=== PATIENT | female | born 1955 | race Caucasian/White ===

== ENCOUNTER 2016-04-03 12:40 | Emergency (ER) | payer OTHER ==
[~2016-04-03] VITALS: Ht 160 cm; Wt 49.9 kg
[~2016-04-03 12:40] MED LIST: ALBUTEROL 3 ML3 ML INH; COMBIVENT RESPIM4 GM INH; COZAAR25 M1 PO; HYDROCODONE/ACE1 TA1 PO; IBU800 MG PO; MOTRIN 800MG T800 MG PO; MOTRIN800 MG PO; NORVASC5 M1 PO; OXYCODONE5 M1 PO; PERCOCET 325 MG1 TAB PO; PREDNISONE10 MG PO; PREDNISONE20 M1 PO; ZITHROMAX250 M2 PO
[2016-04-03 12:55] VITALS: BP 155/78
== END 2016-04-03 13:22 | disposition admitted as inpatient to this hospital (09) ==
LOC: ERH 12:40
DX: M25.511 Pain in right shoulder (principal)

== ENCOUNTER 2016-04-16 10:32 | Emergency (ER) | payer OTHER ==
[~2016-04-16] VITALS: Ht 162.6 cm; Wt 49.9 kg
--- NOTE | 2016-04-16 11:36 | ED NECK/BACK PAIN COMPLAINT ---
History of Present Illness General Chief Complaint: Upper Extremity Injury Stated Complaint: R ARM PAIN Source: patient Exam Limitations: no limitations Vital Signs & Intake/Output Vital Signs & Intake/Output Vital Signs Date Time Temp Pulse Resp B/P Pulse O2 O2 Flow FiO2 Ox Delivery Rate 04/16 1206 97.2 80 18 121/81 97 Room Air 04/16 1055 97.9 80 20 114/77 95 Room Air Allergies Coded Allergies: NO KNOWN ALLERGIES (10/06/11) Reconcile Medications Albuterol Sulfate 2.5 MG/3 ML (0.083 %) VIAL.NEB 1 Vial INH/DEVIN Q4P PRN BREATHING PROBLEMS (Reported) Amlodipine Besylate (Norvasc) 5 MG TABLET 1 TAB PO DAILY BP (Reported) Duloxetine Hydrochloride (Cymbalta) 30 MG CAPSULE.DR 1 CAP PO DAILY PRN PAIN Ibuprofen 400 MG TABLET 1 TAB PO Q6P PRN PAIN (Reported) Ipratropium/Albuterol Sulfate (Combivent Respimat Inhal [place]) 4 GM MIST.INHAL 1 Actuation INH Q6P PRN COPD Ketorolac Tromethamine 10 MG TABLET 1 TAB PO TID PAIN Losartan/Hydrochlorothiazide (Losartan-Hctz 50-12.5 MG Tab) 50 MG-12.5 MG TABLET 1 TAB PO DAILY HEART (Reported) Methylprednisolone. (Medrol) 4 MG TAB.DS.PK 1 DP PO AD INFLAMMATION 6 on day 1 then reduce by one tablet daily until gone Oxycodone HCl/Acetaminophen (Percocet 7.5-325 MG Tablet) 7.5 MG-325 MG TABLET 1 TAB PO TID PRN PAIN (Reported) Triage Note: PAIN IN THE BACK OF RIGHT SHOULDER THAT RUNS DOWN RIGHT ARM AND PULLS AND ROSE. PT STATES HER RIGHT ARM GOES NUMB Triage Nurses Notes Reviewed? yes Onset: Gradual Duration: constant Timing: recent history Location: paraspinous muscles Context: lifting Loss of Consciousness: no loss of consciousness HPI: Patient is a 60-year-old female with a past medical history of chronic pain who presents to emergency room with a 2 week history of gradual onset of right-sided neck pain with radiation down her right upper extremity of pain paresthesia and weakness. Patient denies any mechanism injury denies any extremity swelling. Patient also states that his primary care doctor no longer prescribed narcotics and was requesting narcotic prescriptions for her chronic symptoms. Denies chest pain shortness of breath (DANNY HINOJOSA) Past History Travel History Traveled to [place] past 21 day No Medical History Any Pertinent Medical History? 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 No (DANNY HINOJOSA) Review of Systems Review of Systems Constitutional: Reports: no symptoms. Eyes: Reports: no symptoms. Ears, Nose, Throat, Mouth: Reports: no symptoms. Respiratory: Reports: no symptoms. Cardiovascular: Reports: no symptoms. Gastrointestinal/Abdominal: Reports: no symptoms. Musculoskeletal: Reports: see HPI, muscle pain, neck pain. Skin: Reports: no symptoms. Neurological/Psychological: Reports: see HPI. All Other Systems: Reviewed and Negative (DANNY HINOJOSA) Physical Exam Physical Exam General Appearance: no apparent distress, alert, comfortable Neck: normal inspection, supple, decreased active range of motion noted Right lateral muscular point tenderness noted, no central spinous tenderness noted Comments: Well-developed well-nourished person in no acute distress HEENT: Normal EENT exam, Neck: Supple, no lymphadenopathy, normal range of motion without pain or tenderness Back: Nontender, no CVA tenderness. Cardiovascular: Regular rate and rhythms no murmurs rubs or gallops, normal JVP Respiratory: Chest nontender. No respiratory distress.breath sounds clear to auscultation bilaterally Abdomen: Soft, nontender nondistended, no appreciable organomegaly. Normal bowel sounds. No ascites Extremity: Right upper extremity generalized decreased dermatome sensation compared bilaterally to left side Myotomes intact DTRs intact radial pulse +2 no swelling Positive Sydney's test Neuro: Alert oriented x3, motor normal, cranial nerves II through XII grossly intact. Skin: No appreciable rash on exposed skin, skin is warm and dry. Psych: Mood and affect is normal, memory and judgment is normal. (DANNY HINOJOSA) Progress Differential Diagnosis: AAA, aortic dissection, C spine injury, carotid dissection, cauda equina syn, herniated disc, myofascial strain, pyelo/UTI, sciatica, spinal cord inj, thoracic outlet syn, T/L spine injury, ureterolithiasis Plan of Care: Current Medications Sig/Kayleen Start time Last Medication Dose Stop Time Status Admin Ketorolac 30 MG ONCE ONE 04/16 1200 AC Tromethamine 04/16 1201 (Toradol) Patient on physical exam findings has concerns of cervical radiculopathy. Patient has been prescribed in the past 7.5 mg of narcotics however patient was strongly advised to follow-up with pain management for her CHRONIC PAIN symptoms and patient will be treated conservatively with NSAIDs and anti-inflammatories. (DANNY HINOJOSA) Departure Departure Disposition: HOME OR SELF CARE Condition: Stable Clinical Impression Primary Impression: Cervical radiculopathy Secondary Impressions: Chronic pain Referrals: KANCHAN MAC,VIJAYA (PCP/Family) Additional Instructions: As discuss follow-up with your primary care doctor for referral for pain management. Begin icing or heating your neck for your symptoms 20 minutes every 2 hours. Begin the prescription a ketorolac for pain and inflammation and a prescription of Cymbalta for pain. Begin the prescription of Medrol Dosepak for inflammation. Prescriptions waiting at [facility]. If symptoms worsen return to emergency room. Follow-up if your primary care doctor in 1 week for recheck of symptoms and possible MRI referral Departure Forms: Customer Survey General Discharge Information Prescriptions: Current Visit Scripts Ketorolac Tromethamine 1 TAB PO TID #20 TAB Duloxetine Hydrochloride (Cymbalta) 1 CAP PO DAILY PRN PAIN #20 CAP Methylprednisolone. (Medrol) 1 DP PO AD #1 DP 6 on day 1 then reduce by one tablet daily until gone (DANNY HINOJOSA) PA/TAILINGS DAM PUMPER Co-Sign Statement Statement: ED Attending supervision documentation- x I saw and evaluated the patient. I have also reviewed all the pertinent lab results and diagnostic results. I agree with the findings and the plan of care as documented in the PA's/TAILINGS DAM PUMPER's documentation. [] I have reviewed the ED Record and agree with the PA's/TAILINGS DAM PUMPER's documentation. [] Additions or exceptions (if any) to the PAs/TAILINGS DAM PUMPER's note and plan are summarized below: [] (POLO MAC,GRIS)
[2016-04-16] MEDS ORDERED: PERCOCET 7.5-31 EACH PO (11:52)
[2016-04-16] MEDS ORDERED: LOSARTAN-HCTZ1 EAC1 PO (11:52)
[2016-04-16] MEDS ORDERED: IBUPROFEN400 M1 PO (11:53)
[2016-04-16] MEDS ORDERED: ALBUTEROL2.5 MG/3 M INH/SOL (11:54)
[2016-04-16] MEDS ORDERED: CYMBALTA30 M1 PO (11:57)
[2016-04-16] MEDS ORDERED: MEDROL4 M2 PO (11:57)
[2016-04-16] MEDS ORDERED: KETOROLAC TROME10 M1 PO (11:57)
[2016-04-16 12:06] VITALS: BP 121/81
== END 2016-04-16 12:22 ==
LOC: ERH 10:32
DX: M54.12 Radiculopathy, cervical region (principal); G89.29 Other chronic pain
CPT/HCPCS: 96372; J1885

== ENCOUNTER 2016-08-19 13:19 | Emergency (ER) | payer OTHER ==
[~2016-08-19] VITALS: Ht 160 cm; Wt 52.2 kg
[~2016-08-19 13:19] MED LIST changes: +ALBUTEROL2.5 MG/3 M INH/SOL; +CYMBALTA30 M1 PO; +IBUPROFEN400 M1 PO; +KETOROLAC TROME10 M1 PO; +LOSARTAN-HCTZ1 EAC1 PO; +MEDROL4 M2 PO; +PERCOCET 7.5-31 EACH PO
[2016-08-19 13:23] VITALS: BP 108/69
[2016-08-19] MEDS ORDERED: ESCITALOPRAM OXA5 MG PO (14:02)
[2016-08-19] MEDS ORDERED: PERCOCET 5-3251 EACH PO (14:17)
[2016-08-19] MEDS ORDERED: MOBIC15 M1 PO (14:17)
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
== END 2016-08-19 14:30 ==
LOC: ERH 13:19
DX: M75.51 Bursitis of right shoulder (principal)

== ENCOUNTER 2017-09-23 08:46 | Emergency (ER) | payer OTHER ==
[~2017-09-23] VITALS: Ht 162.6 cm; Wt 48.1 kg
[~2017-09-23 08:46] MED LIST changes: +ALPRAZOLAM1 M2 PO; +ESCITALOPRAM OXA5 MG PO; +IBUPROFEN800 M1 PO; +MOBIC15 M1 PO; +PERCOCET 5-3251 EACH PO
[2017-09-23 09:01] VITALS: BP 107/68
--- NOTE | 2017-09-23 10:47 | ED GENERAL ADULT ---
History of Present Illness General Chief Complaint: Lower Extremity Problems Stated Complaint: R HIP PAIN Source: patient Exam Limitations: no limitations Vital Signs & Intake/Output Vital Signs & Intake/Output Vital Signs Date Time Temp Pulse Resp B/P B/P Pulse O2 O2 Flow FiO2 Mean Ox Delivery Rate 09/23 0901 97.5 116 20 107/68 96 Room Air Allergies Coded Allergies: NO KNOWN ALLERGIES (10/06/11) Reconcile Medications Alprazolam 1 MG TABLET 1 TAB PO QHS ANXIETY (Reported) Amlodipine Besylate (Norvasc) 5 MG TABLET 1 TAB PO DAILY BP (Reported) Escitalopram Oxalate 5 MG TABLET 1 TAB PO DAILY MENTAL HEALTH (Reported) Ibuprofen 800 MG TABLET 1 TAB PO TID PRN PAIN Losartan/Hydrochlorothiazide (Losartan-Hctz 50-12.5 MG Tab) 50 MG-12.5 MG TABLET 1 TAB PO DAILY HEART (Reported) Oxycodone HCl/Acetaminophen (Percocet 5-325 MG Tablet) 5 MG-325 MG TABLET 1 TAB PO BID pain Oxycodone HCl/Acetaminophen (Percocet 5-325 MG Tablet) 5 MG-325 MG TABLET 1 TAB PO BID PRN PAIN Oxycodone HCl/Acetaminophen (Percocet 5-325 MG Tablet) 5 MG-325 MG TABLET 1 TAB PO BID PRN Bursitis pain Oxycodone HCl/Acetaminophen (Percocet 5-325 MG Tablet) 5 MG-325 MG TABLET 1 TAB PO Q6P PRN pain Triage Note: PT TO ED C/O RIGHT HIP PAIN. H/O BURSITIS, STATES THE WEATHER IS NOT HELPING. TRIED MOTRIN WITH NO RELIEF. DENIES FALLING OR INJURY. DECLINING MEDS IN TRIAGE. Triage Nurses Notes Reviewed? yes HPI: Mrs. mccabe is a 61-year-old female with a long history of self described hip bursitis who presents today with acute on chronic hip pain. She has been seen by her primary physician for this issue before, and it was recommended that she see a pain specialist. However, she never followed up with this specialist because she is not and rested in oral narcotic scripts. She has been recommended to see orthopedics, but she has been hesitant to do so because she is afraid that they will recommend a total hip arthroplasty, which every female member of her family has had, and she does not wish to undergo the procedure. She has an antalgic gait but has been getting around safely without increased risk of fall. Otherwise asymptomatic. Past History Travel History Traveled to [place] past 21 day No Medical History Any Pertinent Medical History? 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 No Review of Systems Review of Systems Constitutional: Reports: see HPI. Respiratory: Reports: no symptoms. Cardiovascular: Reports: no symptoms. GI: Reports: no symptoms. Musculoskeletal: Reports: back pain, joint pain. Denies: joint swelling, muscle pain, muscle stiffness. Skin: Reports: no symptoms. Neurological/Psychological: Reports: no symptoms. Physical Exam Physical Exam General Appearance: well developed/nourished, no apparent distress, alert, anxious Comments: HEENT: Inspection of the head reveals a normocephalic cranium with no signs of trauma. Ophtho: Extraocular muscles are intact. The sclera are noninjected, and there is no obvious discharge. Neck: No signs of trauma or asymmetry to the neck. Respiratory: The patient exhibits no signs of labored breathing. Cardiac: Non-tachycardic. GI: No gross abdominal distention. : Deferred Extremities: Focused examination of the right lower extremity reveals pain on radial motion of the right hip. No obvious effusion or erythema to be concerning for septic joint. Neuro: The patient is oriented to person, place, time, and situation, with no obvious focal motor deficits. Cranial nerves II through XII are intact, and gait is normal. Behavioral: Calm and cooperative Dermatologic: Dermatologic examination reveals no obvious rashes or exanthems. Core Measures ACS in differential dx? No CVA/TIA Diagnosis: No Sepsis Present: No Sepsis Focused Exam Completed? No Progress Differential Diagnoses I considered the following diagnoses in my evaluation of the patient: Hip bursitis, hip effusion, sciatica, septic hip, multiple other possibilities. Plan of Care: Current Medications Sig/Kayleen Start time Last Medication Dose Stop Time Status Admin Oxycodone/ 1 TAB ONCE ONE 09/23 1100 AC Acetaminophen 09/23 1101 (Percocet) Initial ED EKG: none Comments: Otherwise well-appearing patient with low concern for septic hip presents with acute on chronic pain requesting prescription medications. I provided a very short prescription for oxycodone/acetaminophen for her breakthrough pain, but I strongly recommended she get over her fear of the orthopedist and make an appointment for evaluation, as an intra-articular cortisone injection may be nearly curative for her. If there is another process in play such as degenerative joint disease, they will make recommendations for that as well. I instructed her to return to the emergency department for any new or worsening symptoms. Stable at time of discharge. Departure Departure Time of Disposition: 1045 Disposition: HOME OR SELF CARE Condition: Stable Clinical Impression Primary Impression: Hip pain, right Referrals: Dar MAC,Titi Barahona Additional Instructions: Please use the tablets of Percocet we prescribed for your breakthrough pain, and make an appointment with our orthopedist at the number attached. We feel that getting over your fear of being evaluated by an orthopedist would result in better control of your pain in the long-term, possibly by a cortisone injection of your hip. Departure Forms: Customer Survey General Discharge Information Prescriptions: Current Visit Scripts Oxycodone HCl/Acetaminophen (Percocet 5-325 MG Tablet) 1 TAB PO Q6P PRN pain #7 TAB Critical Care Note Critical Care Note Critical Care Time: non-applicable
[2017-09-23] MEDS ORDERED: PERCOCET 5-3251 EACH PO (10:50)
== END 2017-09-23 11:22 ==
LOC: ERH 08:46
DX: M25.551 Pain in right hip (principal)